=== PATIENT | male | born 1955 | race Caucasian/White ===

== ENCOUNTER 2023-05-30 17:34 | Inpatient (IN) | payer MEDICARE, OTHER ==
[~2023-05-30] VITALS: Ht 165.1 cm; Wt 86.2 kg
[2023-05-30 18:34] LABS: BASOPHILS % (AUTO) 0.4 % (0.0-2.0); EOSINOPHILS # (AUTO) 0.4 K/uL (0.0-0.7); EOSINOPHILS % (AUTO) 5.4 % (0.0-6.0); HEMATOCRIT 36 % (39-51); HEMOGLOBIN 11.8 g/dL (13.5-17.5); LYMPHOCYTES # (AUTO) 2.4 K/uL (0.8-4.8); LYMPHOCYTES % (AUTO) 33.2 % (20.0-44.0); MEAN CORPUSCULAR HEMOGLOBIN 28 PG (26.0-33.0); MEAN CORPUSCULAR HGB CONC 33 g/dl (31.0-36.0); MEAN CORPUSCULAR VOLUME 86 fL (80-96); MONOCYTES # (AUTO) 0.6 K/uL (0.1-1.30); MONOCYTES % (AUTO) 8.1 % (2.0-12.0); NEUTROPHILS # (AUTO) 3.9 K/uL (1.8-8.9); NEUTROPHILS % (AUTO) 52.9 % (43.0-81.0); PLATELET COUNT (AUTO) 217 K/uL (150-450); RED BLOOD CELL COUNT(AUTO) 4.22 MIL/uL (4.5-6.0); RED CELL DISTRIBUTION WIDTH 15.6 % (11.5-15.0); WHITE BLOOD COUNT (AUTO) 7.3 K/uL (4.3-11.0)
[2023-05-30 18:43] LABS: CALCIUM, SERUM 8.5 mg/dL (8.5-10.1); CARBON DIOXIDE 29 mmol/L (21-32); CHLORIDE 104 mmol/L (98-107); GLUCOSE 93 mg/dL (74-106); POTASSIUM 3.8 mmol/L (3.5-5.1); SODIUM SERUM 138 mmol/L (136-145); UREA NITROGEN, BLOOD 8 mg/dL (7-18)
[2023-05-30] MEDS ORDERED: TRAZ-257 PO (18:53)
[2023-05-30] MEDS ORDERED: CLON0.5T4 PO (18:53)
[2023-05-30] MEDS ORDERED: OMEP40CA21 PO (18:53)
[2023-05-30] MEDS ORDERED: SIMV-49 PO (18:53)
[2023-05-30] MEDS ORDERED: QUET100T PO (18:53)
[2023-05-30] MEDS ORDERED: FLUO20CA42 PO (18:53)
[2023-05-30] MEDS ORDERED: ASPI-1169 PO (18:53)
[2023-05-30] MEDS ORDERED: MECL-182 PO (18:53)
[2023-05-30] MEDS ORDERED: MIDO5TAB4 PO (18:53)
[2023-05-30 18:55] LABS: ALANINE AMINOTRANSFERASE 10 U/L (12-78); ALBUMIN 2.8 g/dL (3.4-5.0); ALKALINE PHOSPHATASE 56 U/L (46-116); ASPARTATE AMINOTRANSFERASE 13 U/L (15-37); BILIRUBIN,DIRECT 0.1 mg/dL (0.0-0.2); BILIRUBIN,TOTAL 0.2 mg/dL (0.2-1.0); NT-PRO BNP 108 pg/mL (0-125); TOTAL PROTEIN, SERUM 6.8 g/dL (6.4-8.2)
[2023-05-30] MEDS: ASPIRIN 325 MG TABLET PO ONE (19:38)
[2023-05-30] MEDS ORDERED: ASPIRIN 325 MG TABLET ONE (19:38)
[2023-05-30] MEDS ORDERED: HYDROCODONE/APAP 5/325MG TABLET PO PRN (20:30)
[2023-05-30] MEDS ORDERED: MORPHINE SULFATE INJ 2 MG/ML DISP.SYRIN IV PRN (20:30)
[2023-05-30] MEDS ORDERED: MAG HYDROX/AL HYDROX/SIMETH 30 ML UDC PO PRN (20:30)
[2023-05-30] MEDS ORDERED: Z GUARD REMEDY 4 OZ OINT TP PRN (20:30)
[2023-05-30] MEDS ORDERED: ONDANSETRON HCL/PF 4 MG/2 ML VIAL IVP PRN (20:30)
[2023-05-30 21:36] VITALS: BP 126/73; TEMP 97.9; O2SAT 96
[2023-05-30] MEDS: QUETIAPINE FUMARATE 100 MG TABLET PO SCH (22:31)
[2023-05-30] MEDS: TRAZODONE 50 MG TABLET PO SCH (22:31)
[2023-05-30] MEDS: MECLIZINE HCL 12.5 MG TABLET ONE (23:38)
[2023-05-30 23:45] VITALS: BP 130/73; TEMP 97.8; O2SAT 96
[2023-05-31] MEDS: MECLIZINE HCL 12.5 MG TABLET PO SCH (00:22)
[2023-05-31] MEDS: ACETAMINOPHEN 325 MG TABLET PO PRN (00:22)
[2023-05-31 07:00] VITALS: BP 116/80; TEMP 97.5; O2SAT 90
[2023-05-31 07:32] LABS: BASOPHILS % (AUTO) 0.2 % (0.0-2.0); EOSINOPHILS # (AUTO) 0.4 K/uL (0.0-0.7); EOSINOPHILS % (AUTO) 5.6 % (0.0-6.0); HEMATOCRIT 36 % (39-51); HEMOGLOBIN 11.9 g/dL (13.5-17.5); LYMPHOCYTES % (AUTO) 26.1 % (20.0-44.0); MEAN CORPUSCULAR HEMOGLOBIN 29 PG (26.0-33.0); MEAN CORPUSCULAR HGB CONC 33 g/dl (31.0-36.0); MEAN CORPUSCULAR VOLUME 86 fL (80-96); MONOCYTES # (AUTO) 0.6 K/uL (0.1-1.30); NEUTROPHILS # (AUTO) 4.7 K/uL (1.8-8.9); NEUTROPHILS % (AUTO) 60.1 % (43.0-81.0); PLATELET COUNT (AUTO) 205 K/uL (150-450); RED BLOOD CELL COUNT(AUTO) 4.13 MIL/uL (4.5-6.0); RED CELL DISTRIBUTION WIDTH 15.5 % (11.5-15.0); WHITE BLOOD COUNT (AUTO) 7.8 K/uL (4.3-11.0)
[2023-05-31 07:45] LABS: THYROID STIMULATING HORMONE 3.017 uIU/mL (0.358-3.74)
[2023-05-31 08:42] LABS: CALCIUM, SERUM 8.6 mg/dL (8.5-10.1); PHOSPHORUS 4.4 mg/dL (2.5-4.9); POTASSIUM 3.8 mmol/L (3.5-5.1)
[2023-05-31] MEDS: ASPIRIN 81 MG TAB.CHEW PO SCH (10:14)
[2023-05-31] MEDS: FLUOXETINE HCL 20 MG CAPSULE PO SCH (10:14)
[2023-05-31] MEDS: SIMVASTATIN 20 MG TABLET PO SCH (10:15)
[2023-05-31] MEDS: PANTOPRAZOLE 40 MG TABLET.DR PO SCH (10:15)
[2023-05-31] MEDS: MIDODRINE HCL (5MG) 5 MG TABLET PO SCH (10:16)
[2023-05-31] MEDS: MECLIZINE HCL 25 MG TABLET PO SCH (10:21)
[2023-05-31 12:00] VITALS: BP 106/75; TEMP 98.2; O2SAT 92
[2023-05-31] MEDS: METOPROLOL TARTRATE INJ 5 MG/5 ML AMPUL IVP PRN (13:05)
[2023-05-31] MEDS: NITROGLYCERIN 0.4 MG/TAB BOTTLE SL ONE (13:12)
[2023-05-31 16:00] VITALS: BP 108/75; TEMP 98.8; O2SAT 94
[2023-05-31] MEDS: MAGNESIUM HYDROXIDE 30 ML UDC PO PRN (16:27)
[2023-05-31 20:00] VITALS: BP 120/79; TEMP 98.8; O2SAT 95
[2023-05-31] MEDS: clonazePAM 0.5 MG TABLET PO PRN (23:05)
[2023-06-01 00:03] VITALS: BP 159/97; TEMP 98.2; O2SAT 95
[2023-06-01 05:00] VITALS: BP 116/80; TEMP 98.4; O2SAT 96
[2023-06-01 06:40] LABS: BASOPHILS % (AUTO) 0.2 % (0.0-2.0); EOSINOPHILS # (AUTO) 0.4 K/uL (0.0-0.7); HEMATOCRIT 38 % (39-51); HEMOGLOBIN 12.5 g/dL (13.5-17.5); LYMPHOCYTES # (AUTO) 2.2 K/uL (0.8-4.8); LYMPHOCYTES % (AUTO) 28.7 % (20.0-44.0); MEAN CORPUSCULAR HEMOGLOBIN 29 PG (26.0-33.0); MEAN CORPUSCULAR HGB CONC 33 g/dl (31.0-36.0); MEAN CORPUSCULAR VOLUME 86 fL (80-96); MONOCYTES # (AUTO) 0.6 K/uL (0.1-1.30); MONOCYTES % (AUTO) 7.3 % (2.0-12.0); NEUTROPHILS # (AUTO) 4.4 K/uL (1.8-8.9); NEUTROPHILS % (AUTO) 58.8 % (43.0-81.0); PLATELET COUNT (AUTO) 219 K/uL (150-450); RED BLOOD CELL COUNT(AUTO) 4.37 MIL/uL (4.5-6.0); RED CELL DISTRIBUTION WIDTH 15.6 % (11.5-15.0); WHITE BLOOD COUNT (AUTO) 7.5 K/uL (4.3-11.0)
[2023-06-01 06:59] LABS: CALCIUM, SERUM 8.9 mg/dL (8.5-10.1); CREATININE 0.9 mg/dL (0.6-1.3); PHOSPHORUS 3.6 mg/dL (2.5-4.9); POTASSIUM 3.7 mmol/L (3.5-5.1)
[2023-06-01 07:00] VITALS: BP 109/67; TEMP 98.1; O2SAT 94
[2023-06-01] MEDS: MECLIZINE HCL 25 MG TABLET PO SCH (12:46)
[2023-06-01] MEDS: SOD FERRIC GLUC 125 MG in IV NS 0.9% 100 ML IV SCH (14:42)
[2023-06-01 16:14] VITALS: BP 105/71; TEMP 98.8; O2SAT 94
[2023-06-01 20:00] VITALS: BP 143/81; TEMP 98.4; O2SAT 95
[2023-06-01] MEDS ORDERED: MUPIROCIN OINT 2% 22 GM TUBE ONE (23:54)
[2023-06-02] MEDS: MUPIROCIN OINT 2% 22 GM TUBE NS SCH (01:14)
[2023-06-02 08:00] VITALS: BP 110/79; TEMP 97.9; O2SAT 93
[2023-06-02 16:00] VITALS: BP 116/75; TEMP 98.4; O2SAT 94
[2023-06-02 20:00] VITALS: BP 115/77; TEMP 98.4; O2SAT 95
[2023-06-03 07:33] LABS: BASOPHILS % (AUTO) 0.2 % (0.0-2.0); EOSINOPHILS # (AUTO) 0.3 K/uL (0.0-0.7); EOSINOPHILS % (AUTO) 4.4 % (0.0-6.0); HEMATOCRIT 39 % (39-51); HEMOGLOBIN 12.8 g/dL (13.5-17.5); LYMPHOCYTES # (AUTO) 1.7 K/uL (0.8-4.8); LYMPHOCYTES % (AUTO) 24.9 % (20.0-44.0); MEAN CORPUSCULAR HEMOGLOBIN 29 PG (26.0-33.0); MEAN CORPUSCULAR HGB CONC 33 g/dl (31.0-36.0); MEAN CORPUSCULAR VOLUME 86 fL (80-96); MONOCYTES # (AUTO) 0.5 K/uL (0.1-1.30); MONOCYTES % (AUTO) 7.6 % (2.0-12.0); NEUTROPHILS # (AUTO) 4.2 K/uL (1.8-8.9); NEUTROPHILS % (AUTO) 62.9 % (43.0-81.0); PLATELET COUNT (AUTO) 222 K/uL (150-450); RED BLOOD CELL COUNT(AUTO) 4.45 MIL/uL (4.5-6.0); RED CELL DISTRIBUTION WIDTH 15.5 % (11.5-15.0); WHITE BLOOD COUNT (AUTO) 6.6 K/uL (4.3-11.0)
[2023-06-03 08:05] LABS: CALCIUM, SERUM 9.1 mg/dL (8.5-10.1); CREATININE 0.9 mg/dL (0.6-1.3); MAGNESIUM 2.1 mg/dL (1.8-2.4); PHOSPHORUS 4.3 mg/dL (2.5-4.9); POTASSIUM 3.9 mmol/L (3.5-5.1)
[2023-06-03 08:26] VITALS: BP 106/72; TEMP 98.8; O2SAT 94
[2023-06-03 16:05] VITALS: BP 94/70; TEMP 97.9; O2SAT 96
[2023-06-03 20:00] VITALS: BP 120/83; TEMP 98.8; O2SAT 94
[2023-06-04 07:30] LABS: BASOPHILS % (AUTO) 0.3 % (0.0-2.0); EOSINOPHILS # (AUTO) 0.3 K/uL (0.0-0.7); HEMATOCRIT 39 % (39-51); HEMOGLOBIN 12.8 g/dL (13.5-17.5); LYMPHOCYTES # (AUTO) 2.2 K/uL (0.8-4.8); LYMPHOCYTES % (AUTO) 29.1 % (20.0-44.0); MEAN CORPUSCULAR HEMOGLOBIN 29 PG (26.0-33.0); MEAN CORPUSCULAR HGB CONC 33 g/dl (31.0-36.0); MEAN CORPUSCULAR VOLUME 87 fL (80-96); MONOCYTES # (AUTO) 0.7 K/uL (0.1-1.30); MONOCYTES % (AUTO) 9.7 % (2.0-12.0); NEUTROPHILS # (AUTO) 4.3 K/uL (1.8-8.9); NEUTROPHILS % (AUTO) 56.9 % (43.0-81.0); PLATELET COUNT (AUTO) 228 K/uL (150-450); RED BLOOD CELL COUNT(AUTO) 4.49 MIL/uL (4.5-6.0); RED CELL DISTRIBUTION WIDTH 15.8 % (11.5-15.0); WHITE BLOOD COUNT (AUTO) 7.5 K/uL (4.3-11.0)
[2023-06-04 07:47] LABS: CREATININE 0.9 mg/dL (0.6-1.3); MAGNESIUM 2.1 mg/dL (1.8-2.4); PHOSPHORUS 3.8 mg/dL (2.5-4.9); POTASSIUM 3.8 mmol/L (3.5-5.1)
[2023-06-04 08:00] VITALS: BP 118/73; TEMP 98; O2SAT 94
[2023-06-04 10:15] VITALS: BP 106/72; O2SAT 95
[2023-06-04 10:18] VITALS: BP 88/62; O2SAT 95
[2023-06-04 10:22] VITALS: BP 84/50; O2SAT 95
[2023-06-04] MEDS: IV NS 0.9% 1,000 ML IV PRN (11:13)
[2023-06-04 16:00] VITALS: BP 114/56; TEMP 99.1; O2SAT 98
[2023-06-04 20:00] VITALS: BP 135/87; TEMP 99; O2SAT 95
[2023-06-05 07:30] VITALS: BP 97/65; TEMP 97.9; O2SAT 94
[2023-06-05] MEDS: MIDODRINE HCL (5MG) 5 MG TABLET PO SCH (13:05)
[2023-06-05 16:00] VITALS: BP 131/93; TEMP 98.4; O2SAT 97
[2023-06-05 20:00] VITALS: BP_SYST 123; BP_SYST 82; BP_SYST 96; BP_DIAS 65; BP_DIAS 67; BP_DIAS 80; TEMP 98.4; O2SAT 93
[2023-06-05 20:27] VITALS: BP 123/80; TEMP 98.4; O2SAT 93
[2023-06-06 07:00] VITALS: BP 114/75; TEMP 97.5; O2SAT 95
[2023-06-06] MEDS ORDERED: MIDO5TAB4 PO (08:34)
[2023-06-06] MEDS ORDERED: MECL-159 PO (08:34)
[2023-06-06] MEDS: IV NS 0.9% 1,000 ML IV ONE (09:08)
[2023-06-06 16:00] VITALS: BP 112/81; TEMP 98.2; O2SAT 95
[2023-06-07 07:30] VITALS: BP 114/80; TEMP 98.8; O2SAT 96
[2023-06-07] MEDS: IV NS 0.9% 1,000 ML IV SCH (08:58)
[2023-06-07] MEDS: FLUDROCORTISONE 0.1 MG TABLET PO SCH (09:00)
[2023-06-07] MEDS: methylPREDNISolone SOD SUCC 125 MG/2ML VIAL IV SCH (09:04)
[2023-06-07 16:00] VITALS: BP 126/85; TEMP 97.9; O2SAT 95
[2023-06-07 20:00] VITALS: BP_SYST 123; BP_SYST 131; BP_DIAS 81; BP_DIAS 84; TEMP 99; O2SAT 93; O2SAT 94
[2023-06-07 20:02] VITALS: BP 100/73; TEMP 99; O2SAT 94
[2023-06-07 20:04] VITALS: BP 92/70; TEMP 99; O2SAT 94
[2023-06-08] MEDS: FLUDROCORTISONE 0.1 MG TABLET PO SCH (05:54)
[2023-06-08 08:39] VITALS: BP 148/86; TEMP 98.9; O2SAT 95
[2023-06-08 16:56] VITALS: BP 135/80; TEMP 99.1; O2SAT 98
[2023-06-08 20:00] VITALS: BP 128/85; TEMP 99; O2SAT 96
[2023-06-08 20:15] VITALS: BP 161/97; TEMP 99; O2SAT 96
[2023-06-08 21:08] VITALS: BP 128/85
[2023-06-09 08:00] VITALS: BP 142/82; TEMP 98.1; O2SAT 96
[2023-06-09 16:00] VITALS: BP 148/69; TEMP 98.5; O2SAT 98
[2023-06-09] MEDS: MECLIZINE HCL 25 MG TABLET PO PRN (16:38)
[2023-06-09 20:00] VITALS: BP 154/88; TEMP 99; O2SAT 95
[2023-06-10 08:59] VITALS: BP 114/58; TEMP 97.9; O2SAT 94
[2023-06-10 16:23] VITALS: BP 140/88; TEMP 98.6; O2SAT 95
[2023-06-10 20:00] VITALS: BP 132/88; TEMP 98.6; O2SAT 93
[2023-06-11 08:00] VITALS: BP 139/87; TEMP 98.4; O2SAT 96
[2023-06-11] MEDS: IV NS 0.9% 1,000 ML IV PRN (09:07)
[2023-06-11 11:00] VITALS: BP_SYST 143; BP_SYST 91; BP_DIAS 73; BP_DIAS 88; O2SAT 95
[2023-06-11 16:00] VITALS: BP 149/92; TEMP 98.4; O2SAT 96
[2023-06-11 20:00] VITALS: BP_SYST 154; BP_SYST 168; BP_DIAS 89; BP_DIAS 95; TEMP 98.8; O2SAT 95
[2023-06-12 08:00] VITALS: BP 110/61; TEMP 99.5; O2SAT 96
[2023-06-12 08:20] VITALS: BP 110/61
== END 2023-06-12 17:20 | DRG 206 ==
LOC: ER 17:52 → TELE 21:36 → MED 06-01 16:57
PROVIDERS: ADMIT Nurse Practitioner Acute Care; ATTEND Nurse Practitioner Family
DX: M94.0 Chondrocostal junction syndrome [Tietze] (principal); E44.0 Moderate protein-calorie malnutrition; I95.1 Orthostatic hypotension; D63.8 Anemia in other chronic diseases classified elsewhere; E78.5 Hyperlipidemia, unspecified; F20.9 Schizophrenia, unspecified; I10 Essential (primary) hypertension; Z20.822 Contact with and (suspected) exposure to COVID-19; Z79.82 Long term (current) use of aspirin; Z79.899 Other long term (current) drug therapy; M19.90 Unspecified osteoarthritis, unspecified site; F41.9 Anxiety disorder, unspecified
CPT/HCPCS: 36415; 71045-TC; 75574; 80048-TC; 80061-TC; 80076-TC; 82728-TC; 83540-TC; 83735-TC; 83880; 84100-TC; 84439-TC; 84443-TC; 84484-TC; 85025-TC; 87081-TC; 93307-TC; 97110-TC; 97112-TC; 97116-TC; 97530-TC; 97535-TC; A4223; G0378; J2916; J2930; J3490; J7030; J7050; J8597; Q9967

== ENCOUNTER 2023-06-18 21:32 | Emergency (ER) | payer MEDICARE, MEDICAID ==
[~2023-06-18] VITALS: Ht 165.1 cm; Wt 81.6 kg
[~2023-06-18 21:32] MED LIST: ASPI-1169 PO; CLON0.5T4 PO; FLUO20CA42 PO; MECL-159 PO; MIDO5TAB4 PO; OMEP40CA21 PO; QUET100T PO; SIMV-49 PO; TRAZ-257 PO
[2023-06-18 22:47] LABS: BASOPHILS % (AUTO) 0.5 % (0.0-2.0); EOSINOPHILS # (AUTO) 0.3 K/uL (0.0-0.7); EOSINOPHILS % (AUTO) 3.8 % (0.0-6.0); HEMATOCRIT 38 % (39-51); HEMOGLOBIN 12.8 g/dL (13.5-17.5); LYMPHOCYTES # (AUTO) 1.9 K/uL (0.8-4.8); LYMPHOCYTES % (AUTO) 27.6 % (20.0-44.0); MEAN CORPUSCULAR HEMOGLOBIN 29 PG (26.0-33.0); MEAN CORPUSCULAR HGB CONC 34 g/dl (31.0-36.0); MEAN CORPUSCULAR VOLUME 87 fL (80-96); MONOCYTES # (AUTO) 0.6 K/uL (0.1-1.30); MONOCYTES % (AUTO) 8.5 % (2.0-12.0); NEUTROPHILS # (AUTO) 4.1 K/uL (1.8-8.9); NEUTROPHILS % (AUTO) 59.6 % (43.0-81.0); PLATELET COUNT (AUTO) 207 K/uL (150-450); RED BLOOD CELL COUNT(AUTO) 4.38 MIL/uL (4.5-6.0); WHITE BLOOD COUNT (AUTO) 6.8 K/uL (4.3-11.0)
[2023-06-18 23:15] LABS: CALCIUM, SERUM 8.4 mg/dL (8.5-10.1); CARBON DIOXIDE 31 mmol/L (21-32); CHLORIDE 103 mmol/L (98-107); CREATININE 0.9 mg/dL (0.6-1.3); GLUCOSE 116 mg/dL (74-106); POTASSIUM 3.6 mmol/L (3.5-5.1); SODIUM SERUM 138 mmol/L (136-145); UREA NITROGEN, BLOOD 14 mg/dL (7-18)
[2023-06-18 23:24] LABS: ALANINE AMINOTRANSFERASE 8 U/L (12-78); ALBUMIN 2.8 g/dL (3.4-5.0); ALKALINE PHOSPHATASE 60 U/L (46-116); ASPARTATE AMINOTRANSFERASE 10 U/L (15-37); BILIRUBIN,DIRECT 0.1 mg/dL (0.0-0.2); BILIRUBIN,TOTAL 0.3 mg/dL (0.2-1.0); TOTAL PROTEIN, SERUM 6.6 g/dL (6.4-8.2)
[2023-06-18] MEDS ORDERED: KETOROLAC TROMETHAMINE 15 MG/ML VIAL ONE (23:48)
[2023-06-18] MEDS: KETOROLAC TROMETHAMINE 15 MG/ML VIAL IV ONE (23:54)
[2023-06-19 02:18] VITALS: BP 123/80; TEMP 98.2; O2SAT 100
== END 2023-06-19 02:21 | disposition home or self-care (01) ==
LOC: ER 21:33
DX: R07.89 Other chest pain (principal); I10 Essential (primary) hypertension; E78.5 Hyperlipidemia, unspecified; F20.9 Schizophrenia, unspecified; Z91.013 Allergy to seafood; Z91.012 Allergy to eggs; Z91.018 Allergy to other foods; Z79.899 Other long term (current) drug therapy
CPT/HCPCS: 99285; 96374; 71045; 93005 ×4; 85025; 80048; 80076; 36415 ×2; 84484 ×2; J1885

== ENCOUNTER 2023-12-10 01:10 | Inpatient (IN) | payer MEDICARE, OTHER ==
[~2023-12-10] VITALS: Ht 175.3 cm; Wt 81.6 kg
[2023-12-10 01:57] LABS: BASOPHILS % (AUTO) 0.1 % (0.0-2.0); EOSINOPHILS % (AUTO) 0.3 % (0.0-6.0); HEMATOCRIT 48 % (39-51); HEMOGLOBIN 15.4 g/dL (13.5-17.5); LYMPHOCYTES # (AUTO) 1.5 K/uL (0.8-4.8); LYMPHOCYTES % (AUTO) 13.9 % (20.0-44.0); MEAN CORPUSCULAR HEMOGLOBIN 29 PG (26.0-33.0); MEAN CORPUSCULAR HGB CONC 32 g/dl (31.0-36.0); MEAN CORPUSCULAR VOLUME 91 fL (80-96); MONOCYTES # (AUTO) 0.7 K/uL (0.1-1.30); MONOCYTES % (AUTO) 6.2 % (2.0-12.0); NEUTROPHILS # (AUTO) 8.4 K/uL (1.8-8.9); NEUTROPHILS % (AUTO) 79.5 % (43.0-81.0); PLATELET COUNT (AUTO) 175 K/uL (150-450); RED CELL DISTRIBUTION WIDTH 15.7 % (11.5-15.0); WHITE BLOOD COUNT (AUTO) 10.5 K/uL (4.3-11.0)
[2023-12-10 02:05] LABS: CARBON DIOXIDE 19 mmol/L (21-32); CHLORIDE 100 mmol/L (98-107); CREATININE 0.9 mg/dL (0.6-1.3); GLUCOSE 107 mg/dL (74-106); POTASSIUM 3.7 mmol/L (3.5-5.1); SODIUM SERUM 135 mmol/L (136-145); UREA NITROGEN, BLOOD 13 mg/dL (7-18)
[2023-12-10 02:10] LABS: ALANINE AMINOTRANSFERASE 10 U/L (12-78); ALBUMIN 3.5 g/dL (3.4-5.0); ALCOHOL, BLOOD < 3 mg/dL (0-10); ALKALINE PHOSPHATASE 73 U/L (46-116); ASPARTATE AMINOTRANSFERASE 18 U/L (15-37); BILIRUBIN,TOTAL 0.7 mg/dL (0.2-1.0); TOTAL PROTEIN, SERUM 7.6 g/dL (6.4-8.2)
[2023-12-10 02:20] LABS: ACETAMINOPHEN <10 ug/ml (10-30); SALICYLATE 2.6 mg/dL (2.8-20.0)
[2023-12-10 03:53] LABS: APPEARANCE,URINE CLEAR (CLEAR); BILIRUBIN,URINE NEGATIVE (NEGATIVE); BLOOD, URINE TRACE-INTA Ery/uL (NEGATIVE); COLOR,URINE YELLOW (YELLOW); KETONES,URINE 3+ mg/dL (NEGATIVE); LEUKOCYTE ESTERASE ,URINE NEGATIVE (NEGATIVE); NITRITE, URINE NEGATIVE (NEGATIVE); PROTEIN,URINE NEGATIVE (NEGATIVE); UGLUCOSE NEGATIVE (NEGATIVE); UROBILINOGEN,URINE 0.2 EU/dL (0.2)
[2023-12-10 03:54] LABS: ADD URINE CULTURE NO; BACTERIA,URINE Rare /HPF (None Seen); SQUAMOUS EPITHELIAL CELL,UR Few /HPF (None Seen); WBC,URINE 0-2 /HPF (0-3)
[2023-12-10 04:01] LABS: AMPHETAMINE, URINE NEGATIVE (NEGATIVE); BARBITURATE, URINE NEGATIVE (NEGATIVE); BENZODIAZEPINE, URINE NEGATIVE (NEGATIVE); CANNABINOID, URINE NEGATIVE (NEGATIVE); COCCAINE, URINE NEGATIVE (NEGATIVE); OPIATE, URINE NEGATIVE (NEGATIVE); PHENCYCLIDINE SCREEN,URINE NEGATIVE (NEGATIVE)
[2023-12-10] MEDS ORDERED: CRAN500T3 PO (04:39)
[2023-12-10] MEDS ORDERED: OMEG1CAP18 PO (04:39)
[2023-12-10] MEDS ORDERED: QUET25TA PO (04:39)
[2023-12-10] MEDS ORDERED: DOCU-141 PO (04:39)
[2023-12-10] MEDS ORDERED: POLY15DR17 EACHEYE (04:39)
[2023-12-10] MEDS ORDERED: FERR220S2 PO (04:39)
[2023-12-10] MEDS: IV NS 0.9% 1,000 ML IV ONE ×2 (05:25)
[2023-12-10] MEDS ORDERED: METOPROLOL TARTRATE INJ 5 MG/5 ML AMPUL ONE (06:01)
[2023-12-10] MEDS ORDERED: LORAZEPAM INJ 2 MG/ML VIAL ONE (06:02)
[2023-12-10] MEDS: LORAZEPAM INJ 2 MG/ML VIAL IV ONE (06:03)
[2023-12-10] MEDS: METOPROLOL TARTRATE INJ 5 MG/5 ML AMPUL IV ONE (06:04)
[2023-12-10 08:00] VITALS: BP 142/92; TEMP 97.3; O2SAT 93
[2023-12-10] MEDS ORDERED: MAGN400O6 PO (08:15)
[2023-12-10] MEDS ORDERED: NITR0.4T48 SL (08:15)
[2023-12-10] MEDS ORDERED: QUET150T4 PO (08:15)
[2023-12-10] MEDS ORDERED: PANT40TA49 PO (08:15)
[2023-12-10] MEDS ORDERED: NA P133E RC (08:15)
[2023-12-10] MEDS ORDERED: ACET325T53 PO (08:15)
[2023-12-10] MEDS ORDERED: AMIN30LI66 PO (08:15)
[2023-12-10] MEDS ORDERED: TRAM50TA2 PO (08:15)
[2023-12-10] MEDS ORDERED: MECL-159 PO (08:15)
[2023-12-10] MEDS ORDERED: OMEG-167 PO (08:15)
[2023-12-10] MEDS ORDERED: ACET-73 PO (08:15)
[2023-12-10] MEDS ORDERED: BISA10SU11 RC (08:15)
[2023-12-10] MEDS ORDERED: MAGNESIUM HYDROXIDE 30 ML UDC PO PRN (08:30)
[2023-12-10] MEDS ORDERED: LORAZEPAM 0.5 MG TABLET PO PRN (08:30)
[2023-12-10] MEDS ORDERED: MECLIZINE HCL 25 MG TABLET PO PRN (11:30)
[2023-12-10] MEDS: LORAZEPAM 0.5 MG TABLET PO PRN (11:49)
[2023-12-10] MEDS: POLYVINYL ALCOHOL 15 ML BOTTLE EACHEYE SCH (12:52)
[2023-12-10 16:00] VITALS: BP 127/89; TEMP 97.8; O2SAT 94
[2023-12-10] MEDS ORDERED: Medication Not On Formulary EA (Amino AC/Protein Hydr/Whey Pro (Liquacel Liquid Protein PO SCH (18:00)
[2023-12-10 20:13] VITALS: BP 153/97; TEMP 97.9; O2SAT 96
[2023-12-10] MEDS: QUETIAPINE FUMARATE 100 MG TABLET PO SCH (21:06)
[2023-12-10] MEDS: TEMAZEPAM 7.5 MG CAPSULE PO PRN (22:35)
[2023-12-10 22:45] VITALS: BP 142/90; TEMP 97.9; O2SAT 96
[2023-12-11 07:38] LABS: ALBUMIN 3.7 g/dL (3.4-5.0); BILIRUBIN,TOTAL 0.8 mg/dL (0.2-1.0); CALCIUM, SERUM 9.6 mg/dL (8.5-10.1); CREATININE 1.3 mg/dL (0.6-1.3); POTASSIUM 3.8 mmol/L (3.5-5.1); TOTAL PROTEIN, SERUM 8.1 g/dL (6.4-8.2)
[2023-12-11 07:41] LABS: CHOLESTEROL 171 mg/dL (<200); HDL CHOLESTEROL 53 mg/dL (40-60); LDL 104 mg/dL (0-99); TRIGLYCERIDES 51 mg/dL (30-150)
[2023-12-11 08:00] VITALS: BP 198/98; TEMP 97.6; O2SAT 98
[2023-12-11] MEDS: ASPIRIN 81 MG TAB.CHEW PO SCH (08:53)
[2023-12-11] MEDS: DOCUSATE SODIUM 100 MG CAPSULE PO SCH (08:53)
[2023-12-11] MEDS: PANTOPRAZOLE 40 MG TABLET.DR PO SCH (08:53)
[2023-12-11] MEDS: FERROUS SULFATE (325 MG) 325 MG/TAB TABLET PO SCH (08:53)
[2023-12-11] MEDS: QUETIAPINE FUMARATE 25 MG TABLET PO SCH (08:53)
[2023-12-11 16:00] VITALS: BP 129/74; TEMP 98.2; O2SAT 98
[2023-12-11] MEDS: risperiDONE 1 MG TABLET PO SCH (17:18)
[2023-12-11] MEDS: ACETAMINOPHEN 325 MG TABLET PO PRN (20:18)
[2023-12-11 20:40] VITALS: BP 135/86; TEMP 98.2; O2SAT 96
[2023-12-11] MEDS: NITROGLYCERIN 0.4 MG/TAB BOTTLE SL PRN (20:44)
[2023-12-11] MEDS: QUETIAPINE FUMARATE 100 MG TABLET PO SCH (21:42)
[2023-12-12 07:08] LABS: CALCIUM, SERUM 9.3 mg/dL (8.5-10.1); POTASSIUM 3.5 mmol/L (3.5-5.1)
[2023-12-12 08:00] VITALS: BP 133/97; TEMP 97.9; O2SAT 97
[2023-12-12 14:58] LABS: BASOPHILS % (AUTO) 0.3 % (0.0-2.0); EOSINOPHILS # (AUTO) 0.2 K/uL (0.0-0.7); EOSINOPHILS % (AUTO) 1.8 % (0.0-6.0); HEMATOCRIT 44 % (39-51); LYMPHOCYTES # (AUTO) 1.8 K/uL (0.8-4.8); LYMPHOCYTES % (AUTO) 20.5 % (20.0-44.0); MEAN CORPUSCULAR HEMOGLOBIN 29 PG (26.0-33.0); MEAN CORPUSCULAR HGB CONC 32 g/dl (31.0-36.0); MEAN CORPUSCULAR VOLUME 90 fL (80-96); MONOCYTES # (AUTO) 1.1 K/uL (0.1-1.30); MONOCYTES % (AUTO) 12.1 % (2.0-12.0); NEUTROPHILS # (AUTO) 5.8 K/uL (1.8-8.9); NEUTROPHILS % (AUTO) 65.3 % (43.0-81.0); PLATELET COUNT (AUTO) 172 K/uL (150-450); RED BLOOD CELL COUNT(AUTO) 4.86 MIL/uL (4.5-6.0); RED CELL DISTRIBUTION WIDTH 16.3 % (11.5-15.0); WHITE BLOOD COUNT (AUTO) 8.8 K/uL (4.3-11.0)
[2023-12-12 16:00] VITALS: BP 123/87; TEMP 97.9; O2SAT 96
[2023-12-12 20:00] VITALS: BP 113/82; TEMP 98.3; O2SAT 96
[2023-12-13 08:00] VITALS: BP 100/57; TEMP 98.2; O2SAT 99
[2023-12-13 16:00] VITALS: BP 118/77; TEMP 98.6; O2SAT 97
[2023-12-13 20:00] VITALS: BP 116/71; TEMP 98.2; O2SAT 99
[2023-12-13] MEDS: QUETIAPINE FUMARATE 25 MG TABLET PO SCH (21:37)
[2023-12-14 08:00] VITALS: BP 112/75; TEMP 98.6; O2SAT 96
[2023-12-14] MEDS: risperiDONE 1 MG TABLET PO SCH (08:30)
[2023-12-14 16:00] VITALS: BP 121/79; TEMP 98.6; O2SAT 98
[2023-12-14 20:00] VITALS: BP 116/74; TEMP 98.3; O2SAT 98
[2023-12-15 08:00] VITALS: BP 134/82; TEMP 97.9; O2SAT 93
[2023-12-15 16:00] VITALS: BP 115/77; TEMP 97.8; O2SAT 94
[2023-12-15] MEDS: risperiDONE 1 MG TABLET PO SCH (16:12)
[2023-12-15] MEDS: QUETIAPINE FUMARATE 100 MG TABLET PO SCH (21:00)
[2023-12-15 21:07] VITALS: BP 130/84; TEMP 97.9; O2SAT 96
[2023-12-16 08:00] VITALS: BP 128/77; TEMP 97.9; O2SAT 95
[2023-12-16 16:00] VITALS: BP 121/78; TEMP 98.6; O2SAT 96
[2023-12-16 20:36] VITALS: BP 126/79; TEMP 98.2; O2SAT 97
[2023-12-17] MEDS: MAG HYDROX/AL HYDROX/SIMETH 30 ML UDC PO PRN (06:16)
[2023-12-17 08:00] VITALS: BP 127/79; TEMP 98.6; O2SAT 95
[2023-12-17] MEDS: ATORVASTATIN 10 MG TABLET PO SCH (12:45)
[2023-12-17 16:00] VITALS: BP 123/83; TEMP 98.6; O2SAT 96
[2023-12-17 20:31] VITALS: BP 117/75; TEMP 98; O2SAT 96
[2023-12-17] MEDS: risperiDONE 1 MG TABLET PO SCH (21:14)
[2023-12-17] MEDS: TEMAZEPAM 7.5 MG CAPSULE PO PRN (22:16)
[2023-12-17] MEDS: LORAZEPAM 0.5 MG TABLET PO PRN (23:19)
[2023-12-18 08:00] VITALS: BP 135/86; TEMP 98.4; O2SAT 95
[2023-12-18] MEDS: clonazePAM 0.5 MG TABLET PO PRN (15:35)
[2023-12-18 16:00] VITALS: BP 113/76; TEMP 98.6; O2SAT 98
[2023-12-18 18:19] VITALS: BP 124/74; TEMP 98.7; O2SAT 97
[2023-12-18] MEDS: LORAZEPAM 0.5 MG TABLET PO PRN (21:07)
[2023-12-18] MEDS: risperiDONE 1 MG TABLET PO SCH (21:07)
[2023-12-19 08:00] VITALS: BP 140/78; TEMP 97.8; O2SAT 93
[2023-12-19 16:19] VITALS: BP 111/73; TEMP 98; O2SAT 96
[2023-12-19 20:00] VITALS: BP 117/73; TEMP 98.3; O2SAT 98
[2023-12-20 08:00] VITALS: BP 123/85; TEMP 97.8; O2SAT 99
[2023-12-20 16:00] VITALS: BP 111/75; TEMP 97.8; O2SAT 95
[2023-12-20 20:00] VITALS: BP 118/76; TEMP 97.8; O2SAT 95
[2023-12-21 08:00] VITALS: BP 112/74; TEMP 97.8; O2SAT 98
[2023-12-21 16:00] VITALS: BP 119/76; TEMP 97.9; O2SAT 97
[2023-12-21 20:00] VITALS: BP 147/85; TEMP 98.3; O2SAT 96
[2023-12-22 08:42] VITALS: BP 116/78; TEMP 98.3; O2SAT 92
[2023-12-22 15:45] VITALS: BP 119/68; TEMP 98; O2SAT 96
[2023-12-22 20:31] VITALS: BP 128/78; TEMP 98.5; O2SAT 97
[2023-12-23 08:00] VITALS: BP 131/76; TEMP 97.7; O2SAT 94
[2023-12-23 16:00] VITALS: BP 122/80; TEMP 97.6; O2SAT 98
[2023-12-23 20:44] VITALS: BP 118/75; TEMP 98.2; O2SAT 98
[2023-12-24 08:00] VITALS: BP 123/72; TEMP 97.8; O2SAT 98
== END 2023-12-24 15:00 | DRG 885 ==
LOC: ER 01:12 → GPS 06:28
PROVIDERS: ADMIT Nurse Practitioner Psychiatric/Mental Health; ATTEND Student in an Organized Health Care Education/Training Program
DX: F20.9 Schizophrenia, unspecified (principal); E87.1 Hypo-osmolality and hyponatremia; F29 Unspecified psychosis not due to a substance or known physiological condition; I10 Essential (primary) hypertension; E78.5 Hyperlipidemia, unspecified; G31.84 Mild cognitive impairment of uncertain or unknown etiology; Z79.899 Other long term (current) drug therapy; F41.9 Anxiety disorder, unspecified; F32.A Depression, unspecified; Z91.013 Allergy to seafood; Z91.018 Allergy to other foods; Z79.82 Long term (current) use of aspirin; I25.10 Atherosclerotic heart disease of native coronary artery without angina pectoris; Z91.199 Patient's noncompliance with other medical treatment and regimen due to unspecified reason; E86.0 Dehydration; R79.89 Other specified abnormal findings of blood chemistry; R00.0 Tachycardia, unspecified
CPT/HCPCS: 36415; 71045-TC; 80048-TC; 80053-TC; 80061-TC; 81001; 83605-TC; 83880; 84443-TC; 84484-TC; 85025-TC; 87040-TC; 97110-TC; 97116-TC; 97530-TC; 98960; G0480; J2060; J3490; J7030

== ENCOUNTER 2024-01-14 20:39 | Inpatient (IN) | payer MEDICARE, OTHER ==
[~2024-01-14] VITALS: Ht 175.3 cm; Wt 81.6 kg
[~2024-01-14 20:39] MED LIST changes: +ACET-73 PO; +ACET325T53 PO; +AMIN30LI66 PO; +BISA10SU11 RC; +CRAN500T3 PO; +DOCU-141 PO; +FERR220S2 PO; -FLUO20CA42 PO; +MAGN400O6 PO; -MIDO5TAB4 PO; +NA P133E RC; +NITR0.4T48 SL; +OMEG-167 PO; -OMEP40CA21 PO; +PANT40TA49 PO; +POLY15DR17 EACHEYE; -QUET100T PO; +QUET150T4 PO; +QUET25TA PO; -SIMV-49 PO; +TRAM50TA2 PO; -TRAZ-257 PO
[2024-01-14 22:56] LABS: BASOPHILS % (AUTO) 0.2 % (0.0-2.0); EOSINOPHILS # (AUTO) 0.3 K/uL (0.0-0.7); EOSINOPHILS % (AUTO) 4.9 % (0.0-6.0); HEMATOCRIT 40 % (39-51); HEMOGLOBIN 13.1 g/dL (13.5-17.5); LYMPHOCYTES # (AUTO) 2.6 K/uL (0.8-4.8); LYMPHOCYTES % (AUTO) 40.1 % (20.0-44.0); MEAN CORPUSCULAR HEMOGLOBIN 29 PG (26.0-33.0); MEAN CORPUSCULAR HGB CONC 33 g/dl (31.0-36.0); MEAN CORPUSCULAR VOLUME 90 fL (80-96); MONOCYTES # (AUTO) 0.7 K/uL (0.1-1.30); MONOCYTES % (AUTO) 10.4 % (2.0-12.0); NEUTROPHILS # (AUTO) 2.9 K/uL (1.8-8.9); NEUTROPHILS % (AUTO) 44.4 % (43.0-81.0); PLATELET COUNT (AUTO) 219 K/uL (150-450); RED BLOOD CELL COUNT(AUTO) 4.47 MIL/uL (4.5-6.0); RED CELL DISTRIBUTION WIDTH 15.9 % (11.5-15.0); WHITE BLOOD COUNT (AUTO) 6.5 K/uL (4.3-11.0)
[2024-01-14 23:05] LABS: CALCIUM, SERUM 8.2 mg/dL (8.5-10.1); CARBON DIOXIDE 26 mmol/L (21-32); CHLORIDE 105 mmol/L (98-107); CREATININE 0.9 mg/dL (0.6-1.3); GLUCOSE 107 mg/dL (74-106); POTASSIUM 3.8 mmol/L (3.5-5.1); SODIUM SERUM 137 mmol/L (136-145); UREA NITROGEN, BLOOD 23 mg/dL (7-18)
[2024-01-14] MEDS ORDERED: LORAZEPAM 0.5 MG TABLET ONE (23:08)
[2024-01-14] MEDS ORDERED: OLANZAPINE 5 MG TABLET ONE (23:08)
[2024-01-14 23:11] LABS: ACETAMINOPHEN 4 ug/ml (10-30); ALANINE AMINOTRANSFERASE 12 U/L (12-78); ALBUMIN 2.9 g/dL (3.4-5.0); ALCOHOL, BLOOD < 3 mg/dL (0-10); ALKALINE PHOSPHATASE 58 U/L (46-116); ASPARTATE AMINOTRANSFERASE 18 U/L (15-37); BILIRUBIN,DIRECT 0.1 mg/dL (0.0-0.2); BILIRUBIN,TOTAL 0.2 mg/dL (0.2-1.0); SALICYLATE 2.1 mg/dL (2.8-20.0); TOTAL PROTEIN, SERUM 6.6 g/dL (6.4-8.2)
[2024-01-14] MEDS: OLANZAPINE 5 MG TABLET PO ONE (23:12)
[2024-01-14] MEDS: LORAZEPAM 0.5 MG TABLET PO ONE (23:12)
[2024-01-15 01:18] LABS: APPEARANCE,URINE CLEAR (CLEAR); BILIRUBIN,URINE NEGATIVE (NEGATIVE); BLOOD, URINE NEGATIVE Ery/uL (NEGATIVE); COLOR,URINE YELLOW (YELLOW); KETONES,URINE NEGATIVE (NEGATIVE); LEUKOCYTE ESTERASE ,URINE NEGATIVE (NEGATIVE); NITRITE, URINE NEGATIVE (NEGATIVE); PROTEIN,URINE NEGATIVE (NEGATIVE); UGLUCOSE NEGATIVE (NEGATIVE); UROBILINOGEN,URINE 0.2 EU/dL (0.2)
[2024-01-15 01:33] LABS: AMPHETAMINE, URINE NEGATIVE (NEGATIVE); BARBITURATE, URINE NEGATIVE (NEGATIVE); BENZODIAZEPINE, URINE NEGATIVE (NEGATIVE); CANNABINOID, URINE NEGATIVE (NEGATIVE); COCCAINE, URINE NEGATIVE (NEGATIVE); OPIATE, URINE NEGATIVE (NEGATIVE); PHENCYCLIDINE SCREEN,URINE NEGATIVE (NEGATIVE)
[2024-01-15] MEDS ORDERED: MAG HYDROX/AL HYDROX/SIMETH 30 ML UDC PO PRN (02:30)
[2024-01-15] MEDS ORDERED: MAGNESIUM HYDROXIDE 30 ML UDC PO PRN (02:30)
[2024-01-15] MEDS: BLOOD SUGAR DIAGNOSTIC 1 EACH STRIP IN ONE (02:47)
[2024-01-15] MEDS: TRAMADOL HCL 50 MG TABLET PO ONE (02:47)
[2024-01-15 03:08] VITALS: BP 144/84; TEMP 98; O2SAT 95
[2024-01-15 08:00] VITALS: BP 116/69; TEMP 98.2; O2SAT 97
[2024-01-15 08:00] LABS: ALANINE AMINOTRANSFERASE < 6 U/L (12-78); ALBUMIN 2.6 g/dL (3.4-5.0); ALKALINE PHOSPHATASE 53 U/L (46-116); ASPARTATE AMINOTRANSFERASE 17 U/L (15-37); BILIRUBIN,TOTAL 0.3 mg/dL (0.2-1.0); CALCIUM, SERUM 8.6 mg/dL (8.5-10.1); CARBON DIOXIDE 27 mmol/L (21-32); CHLORIDE 111 mmol/L (98-107); CHOLESTEROL 127 mg/dL (<200); CREATININE 0.8 mg/dL (0.6-1.3); GLUCOSE 99 mg/dL (74-106); HDL CHOLESTEROL 44 mg/dL (40-60); LDL 75 mg/dL (0-99); SODIUM SERUM 147 mmol/L (136-145); TOTAL PROTEIN, SERUM 6.1 g/dL (6.4-8.2); TRIGLYCERIDES 45 mg/dL (30-150); UREA NITROGEN, BLOOD 20 mg/dL (7-18)
[2024-01-15] MEDS ORDERED: RISP2TAB85 PO (08:37)
[2024-01-15] MEDS ORDERED: TEMA7.5C PO (08:37)
[2024-01-15] MEDS ORDERED: LORA-258 PO (08:37)
[2024-01-15] MEDS ORDERED: ATOR10TA PO (08:37)
[2024-01-15] MEDS ORDERED: Medication Not On Formulary EA (Cranberry Extract (Cranberry) 450 MG) PO SCH (09:00)
[2024-01-15] MEDS ORDERED: Medication Not On Formulary EA (Omega-3 Fatty Acids/Fish Oil (Fish Oil 1,000 Mg Softgel) PO SCH (09:00)
[2024-01-15] MEDS: ASPIRIN 81 MG TAB.CHEW PO SCH (09:16)
[2024-01-15] MEDS: DOCUSATE SODIUM 100 MG CAPSULE PO SCH (09:16)
[2024-01-15] MEDS: FERROUS SULFATE (325 MG) 325 MG/TAB TABLET PO SCH (09:16)
[2024-01-15] MEDS: PANTOPRAZOLE 40 MG TABLET.DR PO SCH (09:16)
[2024-01-15] MEDS: POLYVINYL ALCOHOL 15 ML BOTTLE EACHEYE SCH (09:17)
[2024-01-15] MEDS: risperiDONE 1 MG TABLET PO SCH ×2 (11:56→21:12)
[2024-01-15] MEDS: TRAMADOL HCL 50 MG TABLET PO PRN (12:20)
[2024-01-15 16:00] VITALS: BP 134/82; TEMP 98.7; O2SAT 98
[2024-01-15] MEDS: PROSOURCE / PROSTAT (PYXIS) 30 ML UDC PO SCH (17:20)
[2024-01-15 21:57] VITALS: BP 123/71; TEMP 98.2; O2SAT 95
[2024-01-15] MEDS: clonazePAM 0.5 MG TABLET PO PRN (22:18)
[2024-01-16] MEDS: TEMAZEPAM 7.5 MG CAPSULE PO PRN ×2 (01:03→21:52)
[2024-01-16 08:00] VITALS: BP 111/65; TEMP 98.6; O2SAT 94
[2024-01-16] MEDS: risperiDONE 1 MG TABLET PO SCH (12:56)
[2024-01-16 16:00] VITALS: BP 112/67; TEMP 98.1; O2SAT 93
[2024-01-16] MEDS: clonazePAM 0.5 MG TABLET PO SCH (16:12)
[2024-01-16 20:00] VITALS: BP 111/73; TEMP 98.4; O2SAT 95
[2024-01-16] MEDS: LORAZEPAM 0.5 MG TABLET PO PRN (23:23)
[2024-01-17 08:00] VITALS: BP 100/64; TEMP 97.7; O2SAT 98
[2024-01-17 16:00] VITALS: BP 107/68; TEMP 98.6; O2SAT 97
[2024-01-17 20:00] VITALS: BP 97/66; TEMP 98.3; O2SAT 95
[2024-01-17] MEDS: CARBAMIDE PEROXIDE OTIC 15 ML BOTTLE EACH EAR SCH (20:29)
[2024-01-18 08:00] VITALS: BP 90/60; TEMP 98; O2SAT 93
[2024-01-18 16:00] VITALS: BP 105/68; TEMP 97.9; O2SAT 100
[2024-01-18] MEDS: CLOTRIMAZOLE 1% 15 GM TUBE TP SCH (17:07)
[2024-01-18 20:00] VITALS: BP 115/82; TEMP 97.7; O2SAT 95
[2024-01-19 08:00] VITALS: BP 105/65; TEMP 98.2; O2SAT 100
[2024-01-19 16:00] VITALS: BP 100/71; TEMP 98.6; O2SAT 99
[2024-01-19 20:00] VITALS: BP 102/64; TEMP 98.2; O2SAT 97
[2024-01-20 08:00] VITALS: BP 100/56; TEMP 98.1; O2SAT 98
[2024-01-20 16:00] VITALS: BP 126/64; TEMP 98.2; O2SAT 94
[2024-01-20 20:56] VITALS: BP 97/67; TEMP 98.3; O2SAT 100
[2024-01-21 08:00] VITALS: BP 100/53; TEMP 98.1; O2SAT 98
[2024-01-21 16:00] VITALS: BP 138/77; TEMP 98; O2SAT 97
[2024-01-21 20:52] VITALS: BP 110/67; TEMP 98.8; O2SAT 95
[2024-01-21] MEDS: ACETAMINOPHEN 325 MG TABLET PO PRN (21:27)
[2024-01-22 08:00] VITALS: BP 95/63; TEMP 97.9; O2SAT 95
[2024-01-22 16:00] VITALS: BP 100/64; TEMP 98.7; O2SAT 99
[2024-01-22 20:00] VITALS: BP_SYST 124; BP_SYST 92; BP_DIAS 56; BP_DIAS 85; TEMP 99; O2SAT 96
[2024-01-23 08:00] VITALS: BP 100/64; TEMP 98.1; O2SAT 96
[2024-01-23 16:00] VITALS: BP 104/65; TEMP 98.7; O2SAT 99
[2024-01-23 20:00] VITALS: BP 115/76; TEMP 98.4; O2SAT 98
[2024-01-24 08:00] VITALS: BP 92/62; TEMP 98.4; O2SAT 95
[2024-01-24 16:00] VITALS: BP 122/84; TEMP 98; O2SAT 96
[2024-01-24 20:00] VITALS: BP 109/74; TEMP 98.4; O2SAT 95
[2024-01-25 08:00] VITALS: BP 99/60; TEMP 98; O2SAT 94
== END 2024-01-25 13:45 | DRG 885 ==
LOC: ER 20:41 → GPS 01-15 02:05
PROVIDERS: ADMIT Nurse Practitioner Psychiatric/Mental Health; ATTEND Nurse Practitioner Family
DX: F20.9 Schizophrenia, unspecified (principal); R45.851 Suicidal ideations; E87.0 Hyperosmolality and hypernatremia; F29 Unspecified psychosis not due to a substance or known physiological condition; F41.9 Anxiety disorder, unspecified; G47.00 Insomnia, unspecified; I10 Essential (primary) hypertension; R41.9 Unspecified symptoms and signs involving cognitive functions and awareness; F10.91 Alcohol use, unspecified, in remission; R53.1 Weakness; R27.8 Other lack of coordination; Z91.81 History of falling; E78.5 Hyperlipidemia, unspecified; F32.A Depression, unspecified; I25.10 Atherosclerotic heart disease of native coronary artery without angina pectoris; K21.9 Gastro-esophageal reflux disease without esophagitis; Z91.012 Allergy to eggs; Z91.013 Allergy to seafood; Z91.018 Allergy to other foods; Z79.82 Long term (current) use of aspirin; Z79.899 Other long term (current) drug therapy; H93.19 Tinnitus, unspecified ear
CPT/HCPCS: 36415; 80048-TC; 80053-TC; 80061-TC; 80076-TC; 82962-TC; 85025-TC; 87081-TC; G0480

== ENCOUNTER 2024-02-22 19:09 | Emergency (ER) | payer MEDICARE, OTHER ==
[~2024-02-22] VITALS: Ht 172.7 cm; Wt 77.1 kg
[~2024-02-22 19:09] MED LIST changes: -ACET-73 PO; +ATOR10TA PO; +LORA-258 PO; -OMEG-167 PO; -QUET150T4 PO; -QUET25TA PO; +RISP2TAB85 PO; +TEMA7.5C PO
[2024-02-22 19:34] LABS: BASOPHILS # (AUTO) 0.1 K/uL (0.0-0.2); BASOPHILS % (AUTO) 0.7 % (0.0-2.0); EOSINOPHILS # (AUTO) 0.4 K/uL (0.0-0.7); EOSINOPHILS % (AUTO) 4.9 % (0.0-6.0); HEMATOCRIT 40 % (39-51); HEMOGLOBIN 13.4 g/dL (13.5-17.5); LYMPHOCYTES # (AUTO) 2.7 K/uL (0.8-4.8); LYMPHOCYTES % (AUTO) 36.6 % (20.0-44.0); MEAN CORPUSCULAR HEMOGLOBIN 29 PG (26.0-33.0); MEAN CORPUSCULAR HGB CONC 33 g/dl (31.0-36.0); MEAN CORPUSCULAR VOLUME 87 fL (80-96); MONOCYTES # (AUTO) 0.5 K/uL (0.1-1.30); MONOCYTES % (AUTO) 7.3 % (2.0-12.0); NEUTROPHILS # (AUTO) 3.7 K/uL (1.8-8.9); NEUTROPHILS % (AUTO) 50.5 % (43.0-81.0); PLATELET COUNT (AUTO) 140 K/uL (150-450); RED BLOOD CELL COUNT(AUTO) 4.59 MIL/uL (4.5-6.0); RED CELL DISTRIBUTION WIDTH 15.2 % (11.5-15.0); WHITE BLOOD COUNT (AUTO) 7.4 K/uL (4.3-11.0)
[2024-02-22 19:50] LABS: CALCIUM, SERUM 8.6 mg/dL (8.5-10.1); CARBON DIOXIDE 30 mmol/L (21-32); CHLORIDE 108 mmol/L (98-107); CREATININE 0.9 mg/dL (0.6-1.3); GLUCOSE 109 mg/dL (74-106); SODIUM SERUM 140 mmol/L (136-145); UREA NITROGEN, BLOOD 15 mg/dL (7-18)
[2024-02-22] MEDS ORDERED: CLOT15CR27 TP (19:54)
[2024-02-22 20:03] LABS: INR 1.05 (0.91-1.10); PARTIAL THROMBOPLASTIN TIME 27.8 SEC (24.3-34.3); PROTHROMBIN TIME 11.1 SECS (9.2-11.1)
[2024-02-22 22:55] VITALS: BP 117/70; TEMP 98.4; O2SAT 96
== END 2024-02-22 22:56 ==
LOC: ER 19:16
DX: R07.89 Other chest pain (principal); F20.9 Schizophrenia, unspecified; I10 Essential (primary) hypertension; K21.9 Gastro-esophageal reflux disease without esophagitis; Z79.82 Long term (current) use of aspirin; Z79.899 Other long term (current) drug therapy; Z86.79 Personal history of other diseases of the circulatory system; Z87.39 Personal history of other diseases of the musculoskeletal system and connective tissue; Z88.8 Allergy status to other drugs, medicaments and biological substances; Z91.012 Allergy to eggs; Z91.013 Allergy to seafood
CPT/HCPCS: 36415; 71045-TC; 80048-TC; 84484-TC; 85025-TC; 85730-TC